=== PATIENT | male | born 1985 | race Caucasian/White ===

== ENCOUNTER 2023-01-16 22:03 | Emergency (ER) | payer OTHER ==
[~2023-01-16] VITALS: Ht 182.9 cm; Wt 81.6 kg
[2023-01-16 23:37] VITALS: BP 127/81; TEMP 97.9; O2SAT 98
== END 2023-01-17 00:30 | disposition home or self-care (01) ==
LOC: ER 22:05
DX: M79.671 Pain in right foot (principal); M79.672 Pain in left foot